=== PATIENT | male | born 1990 | race Caucasian/White ===

== ENCOUNTER 2017-10-24 19:56 | Emergency (ER) | payer MEDICAID, OTHER ==
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
[2017-10-24 22:28] VITALS: BP 123/66
--- NOTE | 2017-10-25 16:13 | ASMTCMCOM ---
CM Note CM Note Notes: Pt presented to the Emergency Department for alcohol intoxication. Pt with history of alcohol and polysubstance abuse, as well as PTSD, depression, and borderline personality disorder. Pt is and lives with his . Pt triggered positive for the SBIRT screening and a CM consult was requested for alcohol resources. Attempted to call pt twice at number provided in chart . Left voice message; awaiting call back. CM will continue to attempt to offer resources to pt for further follow up and treatment. Date Signed: 10/25/2017 04:12 PM Electronically Signed By:Radha Coates RN
== END 2017-10-24 22:26 | disposition home or self-care (01) ==
DX: F10.920 Alcohol use, unspecified with intoxication, uncomplicated (principal)

== ENCOUNTER 2017-12-10 21:58 | Emergency (ER) | payer OTHER ==
[2017-12-10 22:14] LABS: PLATELET COUNT 237 10^3/uL (150-400)
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
[2017-12-10 23:04] VITALS: BP 125/94
== END 2017-12-10 23:23 ==
LOC: EDUNIT#
PROC: 0HQCXZZ Repair Left Upper Arm Skin, External Approach (ICD-10-PCS; principal; 2017-12-10)
DX: S41.112A Laceration without foreign body of left upper arm, initial encounter (principal); B20 Human immunodeficiency virus [HIV] disease; Z63.0 Problems in relationship with spouse or partner; X78.9XXA Intentional self-harm by unspecified sharp object, initial encounter
CPT/HCPCS: G0480